=== PATIENT | male | born 1980 | race Caucasian/White ===

== ENCOUNTER 2021-05-23 12:31 | Emergency (ER) | payer OTHER ==
[~2021-05-23] VITALS: Ht 185.4 cm; Wt 80.0 kg
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
--- NOTE | 2021-05-23 13:03 | NUR ---
REPORT TO MARCE SAUNDERS.
--- NOTE | 2021-05-23 13:23 | NUR ---
MEAL PROVIDED. SAFETY PRECAUTIONS IN PLACE.
[2021-05-23 13:38] LABS: BASOPHILS % (AUTO) 0 % (0-1); EOSINOPHILS % (AUTO) 1 % (1-7); LYMPHOCYTES % (AUTO) 16 % (22-44); MEAN CORPUSCULAR HEMOGLOBIN 28.7 pg (27.5-34.5); MEAN CORPUSCULAR HGB CONC 33.6 g/dL (33.2-36.2); MONOCYTES % (AUTO) 12 % (2-9); NEUTROPHILS % (AUTO) 71 % (42-75); PLATELET COUNT 165 x10^3/uL (130-400); RED BLOOD COUNT 5.21 x10^6/uL (4.38-5.82); RED CELL DISTRIBUTION WIDTH 15.1 % (9.4-14.8)
[2021-05-23 13:48] LABS: CHLORIDE 96 mmol/L (98-107)
[2021-05-23 13:54] LABS: ALBUMIN 4.5 g/dL (3.4-5.0); ANION GAP 18 mmol/L (5-15); CALCIUM 10.3 mg/dL (8.5-10.1); CREATININE 1.65 mg/dL (0.7-1.3); SALICYLATE LEVEL < 1.7 mg/dL (2.8-20.0)
--- NOTE | 2021-05-23 14:21 | NUR ---
IVONNE BROWNE AT BEDSIDE TO DISCUSS POC
[2021-05-23 14:49] LABS: AMPHETAMINE SCREEN, URINE Negative (Negative); BARBITURATE SCREEN, URINE Negative (Negative); BENZODIAZEPINE SCREEN, URINE Positive (Negative); CANNABINOID SCREEN, URINE Positive (Negative); COCAINE SCREEN, URINE Negative (Negative); METHADONE SCREEN, URINE Negative (Negative); OPIATE SCREEN, URINE Negative (Negative)
--- NOTE | 2021-05-23 16:18 | NUR ---
PT RESTING IN BED, CALL LIGHT IN REACH. SAFETY PRECAUTIONS IN PLACE.
--- NOTE | 2021-05-23 16:57 | NUR ---
Sari sister [phone]
--- NOTE | 2021-05-23 17:00 | NUR ---
THROUGHPUT RN NOTE: PSYCH PACKET FAXED TO [facility], [facility], [facility], [facility] AND [facility]. AWAITING RESPONSE.
--- NOTE | 2021-05-23 17:24 | NUR ---
THROUGHPUT RN NOTE: [facility] HAS DENIED TRANSFER.
--- NOTE | 2021-05-23 17:24 | NUR ---
LABELER AT BEDSIDE FOR EVAL
--- NOTE | 2021-05-23 17:50 | NUR ---
Report to [facility]
[2021-05-23] MEDS ORDERED: HYDROcodone/APAP 5/325 TABLET ONE (17:58)
[2021-05-23] MEDS ORDERED: OLANZAPINE 5 MG TABLET ONE (17:59)
[2021-05-23] MEDS ORDERED: IBUPROFEN 200 MG TABLET PO ONE (18:00)
[2021-05-23] MEDS ORDERED: HYDROcodone/APAP 5/325 TABLET PO ONE (18:00)
[2021-05-23] MEDS ORDERED: LORazepam 1MG TABLET PO PRN (18:00)
--- NOTE | 2021-05-23 18:06 | NUR ---
MEAL PROVIDED, SAFETY PRECAUTIONS IN PLACE
--- NOTE | 2021-05-23 18:55 | NUR ---
REPORT TO JAVIER ZHENG
[2021-05-23 19:23] VITALS: BP 118/72
[2021-05-23] MEDS ORDERED: OLANZAPINE 5 MG TABLET PO SCH (21:00)
== END 2021-05-23 21:21 ==
LOC: ED 15:21
DX: F23 Brief psychotic disorder (principal); F22 Delusional disorders; F60.0 Paranoid personality disorder
CPT/HCPCS: 36415; 80048; 80299; 80307; 80329; 82040; 85025; 99285; G0480